=== PATIENT | female | born 1995 | race American Indian/Alaskan Native ===

== ENCOUNTER 2020-08-24 22:25 | Emergency (ER) | payer SELFPAY ==
[2020-08-24 22:59] VITALS: BP 115/95
[2020-08-24] MEDS ORDERED: ACETAMINOPHEN 500 MG TAB PO ONE (23:03)
[2020-08-24] MEDS ORDERED: LIDOCAINE-MPF (1%) 10 MG/1 ML VIAL 5 ML INFILTRATI ONE (23:03)
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
== END 2020-08-25 00:55 | disposition home or self-care (01) ==
LOC: ED 22:25
DX: S01.81XA Laceration without foreign body of other part of head, initial encounter (principal); Z90.49 Acquired absence of other specified parts of digestive tract; Z79.899 Other long term (current) drug therapy; Y04.2XXA Assault by strike against or bumped into by another person, initial encounter; Y93.89 Activity, other specified; Y92.89 Other specified places as the place of occurrence of the external cause; Y99.8 Other external cause status
CPT/HCPCS: 70486; 99283

== ENCOUNTER 2020-09-04 09:21 | Emergency (ER) | payer SELFPAY ==
[2020-09-04 09:59] VITALS: BP 90/50
--- NOTE | 2020-09-04 10:31 | Emergency Department Report ---
Suture/Staple Removal - [facility] Chief Complaint: Laceration/Recheck/Suture Stated Complaint: SUTURE REMOVAL Time Seen by Provider: 09/04/20 10:17 When Sutures or Dana Placed: 08/24/2020 Wound Location: left nasolabial fold and left upper lip ED Review of Systems ROS: Stated complaint: SUTURE REMOVAL Other details as noted in HPI Comment: All other systems reviewed and negative ED Past Medical Hx - Surgical History Hx Appendectomy: Yes Additional Surgical History: toNsil - Social History Smoking Status: Never Smoker Substance Use Type: None - Medications Home Medications: Home Medications Medication Instructions Recorded Confirmed Last Taken Type Ibuprofen [Ibuprofen 800] 800 mg PO TID PRN #30 tablet 05/26/18 Unknown Rx Nitrofurantoin Monohyd/M-Cryst 100 mg PO BID 7 Days #14 capsule 05/26/18 Unknown Rx [Macrobid 100 mg Capsule] Ibuprofen [Motrin] 600 mg PO Q8H PRN #24 tablet 08/25/20 Unknown Rx cephALEXin [Keflex] 500 mg PO Q8HR #30 cap 08/25/20 Unknown Rx Suture Removal Exam - Exam General: Vital signs noted. No distress. Alert and acting appropriately. Wound: No Pathologic Erythema, No Tenderness, No Drainage, No Pus, No Wound Dehiscence Other Systems: All other systems reviewed and are unremarkable. ED Course Vital Signs 09/04/20 09:58 Temperature 98.1 F Pulse Rate 88 Respiratory 18 Rate Blood Pressure 90/50 [Right] O2 Sat by Pulse 100 Oximetry ED Recheck MDM - Medical Decision Making Patient is a 25-year-old female presents emergency room for suture removal. She had the sutures placed at this emergency department on 08/24/2020. She has a sutures in place to the left nasolabial fold in the left upper lip. She denies any drainage, fever, wound dehiscence, erythema, increasing pain, any complications. She states she was given a tetanus immunization during her last emergency visit. On exam sutures are in place and appear clean, dry, intact, no signs of infection, no signs of wound dehiscence, skin appears healed. Sutures removed without any difficulty with forceps and fine-point scissors. There is no bleeding or complications. No wound dehiscence, no purulent drainage, no signs of infection. Advised patient to please follow-up with primary care doctor. May use Mederma [id number] to help with scarring. Return to emergency room for new or worsening symptoms. Critical care attestation.: If time is entered above; I have spent that time in minutes in the direct care of this critically ill patient, excluding procedure time. ED Disposition Clinical Impression: Encounter for removal of sutures Disposition: TO HOME OR SELFCARE Is pt being admited?: No Does the pt Need Aspirin: No Condition: Stable Instructions: Suture Removal, Care After Additional Instructions: please follow-up with primary care doctor. May use Mederma [id number] to help with scarring. Return to emergency room for new or worsening symptoms. Referrals: your, primary care doctor [Other] - 3-5 Days Time of Disposition: 10:31 Print Language: CYMRO
== END 2020-09-04 10:49 | disposition home or self-care (01) ==
LOC: ED 09:21
DX: S01.81XD Laceration without foreign body of other part of head, subsequent encounter (principal); Z90.49 Acquired absence of other specified parts of digestive tract; Z79.899 Other long term (current) drug therapy; X58.XXXD Exposure to other specified factors, subsequent encounter

== ENCOUNTER 2022-02-05 21:44 | Emergency (ER) | payer SELFPAY | END 2022-02-06 18:59 | disposition left against medical advice (07) | LOC: ED 21:44 | DX: M79.645 Pain in left finger(s) (principal); Z53.21 Procedure and treatment not carried out due to patient leaving prior to being seen by health care provider ==